=== PATIENT | male | born 1980 | race Hispanic/Latino ===

== ENCOUNTER 2018-07-22 09:07 | Emergency (ER) | payer OTHER ==
--- NOTE | 2018-07-22 09:42 | RAD ---
LEFT FOREARM TWO VIEWS: History: Fall, left arm injury. FINDINGS: Radius and ulna are intact. Mild ulnar negative variant. No acute fracture, dislocation, or radiopaqu e foreign bodies. IMPRESSION: No acute osseous abnormalities are demonstrated. POS: [facility]
--- NOTE | 2018-07-22 09:43 | RAD ---
PORTABLE AP CHEST RADIOGRAPH: Date: 07-22-18 History: Trauma. Comparison: None available. FINDINGS: Cardiac silhouette and bronchovascular markings are accentuated by shallow depth of inspiration and p ortable technique. The lungs appear clear. No obvious pneumothorax is seen and there is no pleural ef fusion identified. Visualized osseous structures demonstrate no evidence of a fracture. IMPRESSION: No acute cardiopulmonary process. POS: [facility]
--- NOTE | 2018-07-22 09:48 | CT ---
HEAD CT NONCONTRAST: INDICATIONS: Posttraumatic pain. FINDINGS: There is no intracranial hemorrhage, mass effect, or midline shift. The calvarium is intact. Scatte red mucus retention cyst formation noted. There is decrease pneumatization of the right mastoid air cells. IMPRESSION: No acute intracranial abnormality. Telephone call to Dr. Gorman placed at the time of the interpretation, 0930 hours, on 07/22/2018. CODE CR
--- NOTE | 2018-07-22 09:49 | RAD ---
LEFT HUMERUS FRONTAL AND LATERAL IMAGIN07/22/2018 HISTORY: Fall. Trauma. Pain. COMPARISON: None. FINDINGS: No displaced fracture or dislocation is seen. IMPRESSION: No acute findings. POS: [facility]
--- NOTE | 2018-07-22 09:49 | CT ---
NONCONTRAST CT CERVICAL SPINE: Date: 07-22-18 History: Level II Trauma. Patient fell 15-20 feet from a tree. Left shoulder and forearm pain. Technique: Contiguous axial CT images are obtained through the cervical spine to the level of the T1 vertebral body. Sagittal and coronal reformatted images are provided. FINDINGS: There is no evidence of a fracture or subluxation involving the cervical spine. The vertebral body he ights are within normal limits. The interspinous distances appear to be within normal limits. The prevertebral soft tissues are within normal limits. There are mucous retention cysts seen in each maxillary antrum with associated mucosal thickening on the left. IMPRESSION: 1. No fracture or subluxation involving the cervical spine. 2. Mucous retention cyst in each maxillary antrum. 3. Above findings discussed with Dr. Hayes in the Emergency Department on 07-22-18 at 0933 hours. POS: [facility]
--- NOTE | 2018-07-22 09:51 | CT ---
CT CHEST AND ABDOMEN AND PELVIS WITH IV CONTRAST: Date: 07/22/18 PROVIDED CLINICAL HISTORY: Left shoulder and left forearm pain status post fall, Level I trauma. FINDINGS: The heart, pericardium, and great vessels demonstrate no evidence for traumatic abnormality. The lung s are free of suspicious opacity. There is no pleural fluid or pneumothorax apparent. The solid abdominal organs demonstrate no evidence for traumatic abnormality. No bowel dilatation, in flammatory fat stranding, free fluid, or free air apparent. The osseous structures demonstrate no evidence for traumatic abnormality. Sagittal and coronal thoracic and lumbar spine reconstructions demonstrate normal spinal alignment an d maintenance of vertebral body heights. Thoracic disc degenerative changes are seen, which are advan octavio for age. IMPRESSION: No evidence for traumatic abnormality involving the chest, abdomen, or pelvis. POS: [facility]
[2018-07-22] MEDS ORDERED: ISOVUE-370 76%-LOCM 1 ML ONE (10:12)
[2018-07-22] MEDS ORDERED: Ketorolac Tromethamine 30 MG/ML VIAL ONE (10:18)
[2018-07-22 10:39] LABS: #Basophils 0.1 thou/uL (0.0-0.2); #Eosinphils 0.1 thou/uL (0.0-0.7); #Lymphocytes 1.8 thou/uL (1.20-3.40); #Monocytes 0.9 thou/uL (0.11-0.59); #Neutrophils 9.2 thou/uL (1.40-6.50); %Basophils 0.7 % (0.0-1.0); %Eosinophils 1.2 % (0.0-10.0); %Monocytes 7.2 % (0.0-10.0); %Neutrophils 75.9 % (42.0-75.0); Hemoglobin 15.9 g/dL (14.0-18.0); Mean Corpuscular HGB CONC 33.1 g/dL (32.0-36.0); Mean Corpuscular Volume 99.5 fL (78.0-98.0); Mean Platelet Volume 9.3 fL (7.4-10.4); Platelet Count 159 thou/uL (130-400); RBC Distribution Width 11.9 % (11.5-14.5); Red Blood Cell (RBC) Count 4.83 mill/uL (4.70-6.10); White Blood Cell (WBC) Count 12.1 thou/uL (4.8-10.8)
[2018-07-22 11:01] LABS: ALT (SGPT) 29 U/L (8-55); AST (SGOT) 22 U/L (5-34); Albumin 3.8 g/dL (3.5-5.0); Alkaline Phosphatase 70 U/L (40-150); Anion Gap 13 mmol/L (10-20); BUN (Urea Nitrogen) 14 mg/dL (8.9-20.6); Bilirubin, Total 0.5 mg/dL (0.2-1.2); Calc. Creatinine Clearance 0 mL/min (70-130); Calcium 9.5 mg/dL (7.8-10.44); Carbon Dioxide 20 mmol/L (22-29); Chloride 109 mmol/L (98-107); Estimated GFR-MDRD 83; Globulin 2.9 g/dL (2.4-3.5); Glucose 107 mg/dL (70-105); Lipase 29 U/L (8-78); Potassium 4.4 mmol/L (3.5-5.1); Protein, Total 6.7 g/dL (6.0-8.3); Sodium 138 mmol/L (136-145)
== END 2018-07-22 10:33 | disposition home or self-care (01) ==
LOC: ERS 09:07
DX: M25.512 Pain in left shoulder (principal); F17.210 Nicotine dependence, cigarettes, uncomplicated; W17.89XA Other fall from one level to another, initial encounter
CPT/HCPCS: 36415; 70450; 71045; 71260; 72125; 74177; 80053; 83690; 85025; 96374; J1885; Q9966

== ENCOUNTER 2023-05-11 00:18 | Emergency (ER) | payer SELFPAY ==
[2023-05-11 01:34] LABS: #Eosinphils 0.3 thou/uL (0.0-0.7); #Monocytes 0.7 thou/uL (0.11-0.59); #Neutrophils 5.5 thou/uL (1.40-6.50); %Basophils 0.2 % (0.0-1.0); %Eosinophils 4.2 % (0.0-10.0); %Lymphocytes 18.9 % (21.0-51.0); %Neutrophils 67.5 % (42.0-75.0); Hematocrit 39.3 % (42.0-52.0); Hemoglobin 13.3 g/dL (14.0-18.0); Mean Corpuscular HGB CONC 33.8 g/dL (32.0-36.0); Mean Corpuscular Hemoglobin 31.6 pg (27.0-31.0); Mean Corpuscular Volume 93.3 fl (78.0-98.0); Platelet Count 336 10x3/uL (130-400); RBC Distribution Width 12.5 % (11.5-14.5); Red Blood Cell (RBC) Count 4.21 mill/uL (4.70-6.10); White Blood Cell (WBC) Count 8.1 10x3/uL (4.8-10.8)
[2023-05-11 01:58] LABS: ALT (SGPT) 63 U/L (8-55); AST (SGOT) 28 U/L (5-34); Albumin 3.7 g/dL (3.5-5.0); Alkaline Phosphatase 68 U/L (40-110); Anion Gap 12 mmol/L (10-20); BUN (Urea Nitrogen) 15 mg/dL (8.9-20.6); Bilirubin, Total 0.4 mg/dL (0.2-1.2); Calc. Creatinine Clearance 0 mL/min (70-130); Calcium 9.1 mg/dL (7.8-10.44); Carbon Dioxide 21 mmol/L (22-29); Chloride 106 mmol/L (98-107); Estimated GFR 108; Globulin 3.8 g/dL (2.4-3.5); Glucose 108 mg/dL (70-105); Potassium 3.9 mmol/L (3.5-5.1); Protein, Total 7.5 g/dL (6.0-8.3); Sodium 135 mmol/L (136-145)
== END 2023-05-11 03:02 | disposition home or self-care (01) ==
LOC: ERS 00:18
DX: M25.462 Effusion, left knee (principal); M25.461 Effusion, right knee; M25.432 Effusion, left wrist; M25.431 Effusion, right wrist; F17.210 Nicotine dependence, cigarettes, uncomplicated
CPT/HCPCS: 36415; 80053; 83880; 85025; 99283

== ENCOUNTER 2023-07-16 19:06 | Inpatient (IN) | payer SELFPAY ==
[~2023-07-16 19:06] MED LIST: Iopamidol-370 76% 500 ML MDV (1 ML CHARGE) ONE
[2023-07-16 20:06] LABS: #Eosinphils 0.3 thou/uL (0.0-0.7); #Neutrophils 5.8 thou/uL (1.40-6.50); %Basophils 0.5 % (0.0-1.0); %Eosinophils 2.9 % (0.0-10.0); %Lymphocytes 17.8 % (21.0-51.0); %Monocytes 11.1 % (0.0-10.0); %Neutrophils 67.2 % (42.0-75.0); Hematocrit 33.5 % (42.0-52.0); Hemoglobin 11.2 g/dL (14.0-18.0); Mean Corpuscular HGB CONC 33.4 g/dL (32.0-36.0); Mean Corpuscular Hemoglobin 28.4 pg (27.0-31.0); Mean Corpuscular Volume 84.8 fl (78.0-98.0); Platelet Count 365 10x3/uL (130-400); RBC Distribution Width 13.4 % (11.5-14.5); Red Blood Cell (RBC) Count 3.95 mill/uL (4.70-6.10); White Blood Cell (WBC) Count 8.6 10x3/uL (4.8-10.8)
[2023-07-16 20:25] LABS: ALT (SGPT) 16 U/L (8-55); AST (SGOT) 16 U/L (5-34); Albumin 3.3 g/dL (3.5-5.0); Alkaline Phosphatase 65 U/L (40-110); Anion Gap 12 mmol/L (10-20); BUN (Urea Nitrogen) 12 mg/dL (8.9-20.6); Bilirubin, Total 0.3 mg/dL (0.2-1.2); Calc. Creatinine Clearance 0 mL/min (70-130); Calcium 9.1 mg/dL (7.8-10.44); Carbon Dioxide 22 mmol/L (22-29); Chloride 105 mmol/L (98-107); Estimated GFR 115; Globulin 4.4 g/dL (2.4-3.5); Glucose 99 mg/dL (70-105); Protein, Total 7.7 g/dL (6.0-8.3); Sodium 135 mmol/L (136-145)
[2023-07-16 20:28] LABS: Troponin I Less than 0.010 ng/mL (< 0.028)
[2023-07-16 20:35] LABS: CK (CPK) 20 U/L (30-200); Magnesium 1.7 mg/dL (1.6-2.6)
[2023-07-16 22:29] LABS: Bacteria/HPF None Seen HPF (None Seen); Bilirubin Negative (Negative); Blood, Urine Negative (Negative); CAUTI Indications for Culture Pelvic or flank pain; Clarity Clear (Clear); Glucose, Urine (Dipstick) Normal (Negative); Ketone, Urine Negative (Negative); Leukocyte Negative Leu/uL (Negative); Nitrite Negative (Negative); Protein, Urine (Dipstick) Negative (Neg-Trace); RBC/HPF 0-3 HPF (0-3); Specific Gravity, Urine 1.013 (1.002-1.036); Squamous Epithelial 0-3 HPF (0-3); Urobilinogen Normal mg/dL (Less than 2); WBC/HPF 0-3 HPF (0-3)
[2023-07-16 22:37] LABS: Urine Culture Reflex No No
[2023-07-16 22:38] LABS: Amphetamine Not Detected (NotDetected); Barbiturates Screen Not Detected (NotDetected); Benzodiazepine Screen Not Detected (NotDetected); Cocaine Metabolite Screen Not Detected (NotDetected); Methadone Not Detected (NotDetected); Methamphetamine Not Detected (NotDetected); Opiate Screen Not Detected (NotDetected); Oxycodone Screen Not Detected (NotDetected); Phencyclidine (PCP) Not Detected (NotDetected); THC/Cannabinoid Screen Not Detected (NotDetected); Tricyclic Screen Not Detected (NotDetected)
[2023-07-17] VITALS: BMI 26.1
[2023-07-17] MEDS ORDERED: Ondansetron ODT 4 MG TAB PO PRN
[2023-07-17] MEDS ORDERED: Ondansetron PF 4 MG/2 ML Vial IVP PRN
[2023-07-17] MEDS ORDERED: Acetaminophen 325 MG TAB ONE (00:39)
[2023-07-17] MEDS: Acetaminophen 325 MG TAB PO PRN (00:47)
[2023-07-17 01:25] LABS: HBCM Index 0.06 S/CO (0-0.79); HBSAg Index 0.23 S/CO (0-0.99); HIV (1/2) Antibody/Antigen Non-Reactive (NonReactive); HIV 1/2 INDEX 0.22 S/CO (<1.00); Hep A IgM AB Non-Reactive S/CO (NonReactive); Hep A IgM S/CO 0.18 S/CO (0-0.79); Hep B Surf Ag Non-Reactive S/CO (NonReactive); Hep C IgG Ab Non-Reactive S/CO (NonReactive); Hep C Index 0.17 S/CO (0-0.79); Hepatitis B Core IgM Abs Non-Reactive S/CO (NonReactive)
[2023-07-17 05:45] LABS: #Eosinphils 0.3 thou/uL (0.0-0.7); #Monocytes 0.9 thou/uL (0.11-0.59); #Neutrophils 4.9 thou/uL (1.40-6.50); %Basophils 0.3 % (0.0-1.0); %Eosinophils 3.5 % (0.0-10.0); %Monocytes 11.4 % (0.0-10.0); %Neutrophils 63.4 % (42.0-75.0); Hematocrit 32.2 % (42.0-52.0); Hemoglobin 10.7 g/dL (14.0-18.0); Mean Corpuscular HGB CONC 33.2 g/dL (32.0-36.0); Mean Corpuscular Hemoglobin 28.7 pg (27.0-31.0); Mean Corpuscular Volume 86.3 fl (78.0-98.0); Platelet Count 337 10x3/uL (130-400); RBC Distribution Width 13.5 % (11.5-14.5); Red Blood Cell (RBC) Count 3.73 mill/uL (4.70-6.10); White Blood Cell (WBC) Count 7.7 10x3/uL (4.8-10.8)
[2023-07-17 06:07] LABS: Anion Gap 10 mmol/L (10-20); BUN (Urea Nitrogen) 11 mg/dL (8.9-20.6); Calc. Creatinine Clearance 129 mL/min (70-130); Calcium 9.1 mg/dL (7.8-10.44); Carbon Dioxide 26 mmol/L (22-29); Chloride 106 mmol/L (98-107); Estimated GFR 115; Glucose 123 mg/dL (70-105); Potassium 3.9 mmol/L (3.5-5.1); Sodium 138 mmol/L (136-145)
[2023-07-17] MEDS ORDERED: Enoxaparin 40 MG (0.4 mL) SYRINGE ONE (07:54)
[2023-07-17] MEDS: Enoxaparin 40 MG (0.4 mL) SYRINGE SC SCH (08:19)
[2023-07-17 11:21] LABS: Syphilis Antibody Nonreactive (Nonreactive); Syphilis Antibody Index 0.08 S/CO (<1.00 Non-Reactive)
[2023-07-17 14:10] LABS: Uric Acid 6.7 mg/dL (3.5-7.2)
[2023-07-17] MEDS: Ketorolac Tromethamine 30 MG (1 mL) VIAL IVP PRN (15:48)
[2023-07-17 16:41] LABS: Reference Lab Name LABCORP
[2023-07-18 05:05] LABS: #Eosinphils 0.3 thou/uL (0.0-0.7); #Monocytes 0.9 thou/uL (0.11-0.59); %Basophils 0.5 % (0.0-1.0); %Eosinophils 3.5 % (0.0-10.0); %Lymphocytes 21.6 % (21.0-51.0); %Monocytes 10.8 % (0.0-10.0); %Neutrophils 63.2 % (42.0-75.0); Hematocrit 31.7 % (42.0-52.0); Hemoglobin 10.3 g/dL (14.0-18.0); Mean Corpuscular HGB CONC 32.5 g/dL (32.0-36.0); Mean Corpuscular Hemoglobin 28.1 pg (27.0-31.0); Mean Corpuscular Volume 86.6 fl (78.0-98.0); Platelet Count 321 10x3/uL (130-400); RBC Distribution Width 13.5 % (11.5-14.5); Red Blood Cell (RBC) Count 3.66 mill/uL (4.70-6.10); White Blood Cell (WBC) Count 7.9 10x3/uL (4.8-10.8)
[2023-07-18 05:30] LABS: Anion Gap 10 mmol/L (10-20); BUN (Urea Nitrogen) 13 mg/dL (8.9-20.6); Calc. Creatinine Clearance 129 mL/min (70-130); Calcium 9.1 mg/dL (7.8-10.44); Carbon Dioxide 26 mmol/L (22-29); Chloride 106 mmol/L (98-107); Estimated GFR 115; Glucose 98 mg/dL (70-105); Potassium 3.8 mmol/L (3.5-5.1); Sodium 138 mmol/L (136-145)
[2023-07-18] MEDS: Sodium Chloride 0.9% 1,000 ML IV SCH (07:37)
[2023-07-18] MEDS ORDERED: Sodium Chloride 0.9% 100 ML ONE (08:05)
[2023-07-18] MEDS ORDERED: CEFAZOLIN 2 GM VIAL ONE (08:05)
[2023-07-18] MEDS ORDERED: Bupivacaine PF 0.5% 30 ML VIAL ONE (08:48)
[2023-07-18] MEDS ORDERED: EPINEPHrine 1 MG/ML VIAL ONE (08:48)
[2023-07-18] MEDS ORDERED: Lidocaine 2% PF 5 ML VIAL ONE (08:50)
[2023-07-18] MEDS ORDERED: fentaNYL PF 100 MCG/2 ML SYRINGE ONE (09:00)
[2023-07-18] MEDS ORDERED: PROPOFOL 20 ML ONE (09:01)
[2023-07-18] MEDS ORDERED: Ondansetron PF 4 MG/2 ML Vial ONE (09:01)
[2023-07-18] MEDS ORDERED: Lidocaine 1% PF 5 ML VIAL ONE (09:01)
[2023-07-18] MEDS ORDERED: PHENYLEPHRINE-NS 100 MCG/ML 10 ML SYRINGE ONE (09:34)
[2023-07-18] MEDS ORDERED: Ondansetron HCl/PF 4 MG/2 ML Vial IVP PRN (09:57)
[2023-07-18] MEDS ORDERED: Promethazine HCl 25 MG/ML VIAL IM PRN (09:57)
[2023-07-18] MEDS ORDERED: fentaNYL 50 mcg/mL 1 mL Vial ONE (10:26)
[2023-07-18 12:20] LABS: ANA Symphony (Qualitative) Negative (Negative); ANA Symphony (Quantitative) 0.4 Ratio (< 0.7 Negative); dsDNA IgG Antibody 2.6 IU/mL (<10 Negative)
[2023-07-18] MEDS ORDERED: CEFAZOLIN 2 GM in Sodium Chloride 0.9% 100 ML IVPB SCH (15:15)
[2023-07-18] MEDS ORDERED: Doxycycline 100 MG CAP PO SCH (21:00)
[2023-07-18] MEDS: Folic Acid 1 MG TAB PO SCH (21:10)
[2023-07-18] MEDS: Cyanocobalamin (Vitamin B-12) 1,000 MCG TAB PO SCH (21:10)
[2023-07-18] MEDS: Multivit, Therapeutic 1 TAB PO SCH (21:10)
[2023-07-18] MEDS: Cholecalciferol 1,000 UNITS (25 MCG) TAB PO SCH (21:10)
[2023-07-18] MEDS: Enoxaparin 40 MG (0.4 mL) SYRINGE SC SCH (21:10)
[2023-07-18] MEDS: Thiamine 100 MG TAB PO SCH (21:10)
[2023-07-19 07:07] LABS: #Eosinphils 0.2 thou/uL (0.0-0.7); #Monocytes 0.8 thou/uL (0.11-0.59); #Neutrophils 6.1 thou/uL (1.40-6.50); %Basophils 0.2 % (0.0-1.0); %Eosinophils 2.2 % (0.0-10.0); %Lymphocytes 17.6 % (21.0-51.0); %Monocytes 9.1 % (0.0-10.0); %Neutrophils 70.4 % (42.0-75.0); Hemoglobin 10.1 g/dL (14.0-18.0); Mean Corpuscular HGB CONC 32.6 g/dL (32.0-36.0); Mean Corpuscular Volume 85.9 fl (78.0-98.0); Mean Platelet Volume 10.5 fL (7.4-10.4); Platelet Count 324 10x3/uL (130-400); RBC Distribution Width 13.5 % (11.5-14.5); Red Blood Cell (RBC) Count 3.61 mill/uL (4.70-6.10); White Blood Cell (WBC) Count 8.7 10x3/uL (4.8-10.8)
[2023-07-19 07:30] LABS: Anion Gap 13 mmol/L (10-20); BUN (Urea Nitrogen) 17 mg/dL (8.9-20.6); Calc. Creatinine Clearance 146 mL/min (70-130); Calcium 8.9 mg/dL (7.8-10.44); Carbon Dioxide 15 mmol/L (22-29); Chloride 110 mmol/L (98-107); Estimated GFR 119; Glucose 96 mg/dL (70-105); Potassium 4.5 mmol/L (3.5-5.1); Sodium 133 mmol/L (136-145)
[2023-07-19] MEDS ORDERED: Iron Sucrose Complex 200 MG in Sodium Chloride 0.9% 100 ML IVPB SCH (13:30)
[2023-07-19] MEDS ORDERED: Iron, Sodium Ferric Gluconate 250 MG in Sodium Chloride 0.9% 250 ML 250 ML IVPB SCH (14:00)
[2023-07-19 14:24] LABS: Reference Lab Name LABCORP
[2023-07-19] MEDS: Calcium Carbonate 600 MG + Vit D TAB PO SCH (16:48)
[2023-07-19] MEDS: Polyethylene Glycol 3350 17 GM Packet PO SCH (16:49)
[2023-07-19] MEDS: Iron, Sodium Ferric Gluconate 250 MG in Sodium Chloride 0.9% 250 ML 250 ML IVPB SCH (18:34)
[2023-07-19] MEDS: Senokot S 8.6-50 MG TAB PO SCH (20:43)
[2023-07-19] MEDS: Ketorolac Tromethamine 30 MG (1 mL) VIAL IVP PRN (23:44)
[2023-07-20 05:00] LABS: #Eosinphils 0.2 thou/uL (0.0-0.7); #Monocytes 0.8 thou/uL (0.11-0.59); #Neutrophils 5.5 thou/uL (1.40-6.50); %Basophils 0.5 % (0.0-1.0); %Eosinophils 2.3 % (0.0-10.0); %Lymphocytes 17.6 % (21.0-51.0); %Neutrophils 69.2 % (42.0-75.0); Hematocrit 29.9 % (42.0-52.0); Hemoglobin 9.9 g/dL (14.0-18.0); Mean Corpuscular HGB CONC 33.1 g/dL (32.0-36.0); Mean Corpuscular Hemoglobin 28.4 pg (27.0-31.0); Mean Corpuscular Volume 85.7 fl (78.0-98.0); Mean Platelet Volume 10.1 fL (7.4-10.4); Platelet Count 294 10x3/uL (130-400); RBC Distribution Width 13.6 % (11.5-14.5); Red Blood Cell (RBC) Count 3.49 mill/uL (4.70-6.10); White Blood Cell (WBC) Count 7.9 10x3/uL (4.8-10.8)
[2023-07-20 05:15] LABS: Phosphorus 4.5 mg/dL (2.3-4.7)
[2023-07-20 05:20] LABS: Anion Gap 10 mmol/L (10-20); BUN (Urea Nitrogen) 16 mg/dL (8.9-20.6); Calc. Creatinine Clearance 148 mL/min (70-130); Calcium 8.6 mg/dL (7.8-10.44); Carbon Dioxide 24 mmol/L (22-29); Chloride 107 mmol/L (98-107); Estimated GFR 120; Glucose 105 mg/dL (70-105); Potassium 3.8 mmol/L (3.5-5.1); Sodium 137 mmol/L (136-145)
[2023-07-20] MEDS ORDERED: Sodium Bicarbonate 2.5 MEQ/5 ML SDV ONE (08:34)
[2023-07-20] MEDS: Ascorbic Acid 500 mg Chewable Tablet PO SCH (10:07)
[2023-07-20] MEDS: Polyethylene Glycol 3350 17 GM Packet PO PRN (10:07)
[2023-07-20] MEDS: pyridOXINE 50 MG (B6) TAB PO SCH (10:07)
[2023-07-20 10:52] LABS: CSF Source CSF; Clarity Clear (Clear); Tube # 1
[2023-07-20 11:20] LABS: CSF, Glucose 56 mg/dl (40-70); CSF, Protein 27 mg/dL (15-40)
[2023-07-20] MEDS: Polyethylene Glycol 3350 17 GM Packet PO SCH (21:31)
[2023-07-20] MEDS: Senokot S 8.6-50 MG TAB PO SCH (21:31)
[2023-07-21 05:59] LABS: #Eosinphils 0.3 thou/uL (0.0-0.7); #Neutrophils 5.5 thou/uL (1.40-6.50); %Basophils 0.4 % (0.0-1.0); %Lymphocytes 17.8 % (21.0-51.0); %Monocytes 12.3 % (0.0-10.0); %Neutrophils 66.3 % (42.0-75.0); Hematocrit 30.4 % (42.0-52.0); Mean Corpuscular HGB CONC 32.9 g/dL (32.0-36.0); Mean Corpuscular Hemoglobin 28.2 pg (27.0-31.0); Mean Corpuscular Volume 85.6 fl (78.0-98.0); Mean Platelet Volume 9.7 fL (7.4-10.4); Platelet Count 306 10x3/uL (130-400); RBC Distribution Width 13.7 % (11.5-14.5); Red Blood Cell (RBC) Count 3.55 mill/uL (4.70-6.10); White Blood Cell (WBC) Count 8.3 10x3/uL (4.8-10.8)
[2023-07-21 06:29] LABS: Anion Gap 11 mmol/L (10-20); BUN (Urea Nitrogen) 12 mg/dL (8.9-20.6); Calc. Creatinine Clearance 138 mL/min (70-130); Calcium 9.2 mg/dL (7.8-10.44); Carbon Dioxide 24 mmol/L (22-29); Chloride 105 mmol/L (98-107); Estimated GFR 117; Glucose 104 mg/dL (70-105); Potassium 4.1 mmol/L (3.5-5.1); Sodium 136 mmol/L (136-145)
[2023-07-21] MEDS: Senokot S 8.6-50 MG TAB PO SCH (07:51)
[2023-07-22] MEDS: Ketorolac Tromethamine 30 MG (1 mL) VIAL IVP PRN (04:46)
[2023-07-22 20:21] LABS: MONO NEGATIVE CONTROL ZONE White (Negative) (White); MONO POSITIVE CONTROL Pink Line (Positive) (PINK/RED); Mononucleosis NEGATIVE (NEGATIVE)
[2023-07-23 07:11] LABS: #Eosinphils 0.3 thou/uL (0.0-0.7); #Neutrophils 5.5 thou/uL (1.40-6.50); %Basophils 0.4 % (0.0-1.0); %Eosinophils 3.6 % (0.0-10.0); %Lymphocytes 19.3 % (21.0-51.0); %Monocytes 11.9 % (0.0-10.0); %Neutrophils 64.4 % (42.0-75.0); Hematocrit 30.8 % (42.0-52.0); Mean Corpuscular HGB CONC 32.5 g/dL (32.0-36.0); Mean Corpuscular Volume 86.3 fl (78.0-98.0); Mean Platelet Volume 10.1 fL (7.4-10.4); Platelet Count 300 10x3/uL (130-400); RBC Distribution Width 14.1 % (11.5-14.5); Red Blood Cell (RBC) Count 3.57 mill/uL (4.70-6.10); White Blood Cell (WBC) Count 8.6 10x3/uL (4.8-10.8)
[2023-07-23 07:33] LABS: Anion Gap 10 mmol/L (10-20); BUN (Urea Nitrogen) 16 mg/dL (8.9-20.6); CRP (Inflammatory) 6.59 mg/dL (= or < 0.5); Calc. Creatinine Clearance 140 mL/min (70-130); Calcium 9.1 mg/dL (7.8-10.44); Carbon Dioxide 26 mmol/L (22-29); Chloride 106 mmol/L (98-107); Estimated GFR 118; Glucose 106 mg/dL (70-105); Potassium 4.2 mmol/L (3.5-5.1); Sodium 138 mmol/L (136-145)
[2023-07-23] MEDS ORDERED: Bupivacaine 0.25% HCL 30 ML VIAL ONE (08:39)
[2023-07-23] MEDS ORDERED: EPINEPHrine 1 MG/ML VIAL ONE (08:39)
[2023-07-23] MEDS ORDERED: PROPOFOL 20 ML ONE (09:01)
[2023-07-23] MEDS ORDERED: Lidocaine 2% PF 5 ML VIAL ONE (09:01)
[2023-07-23] MEDS ORDERED: Lidocaine 1% PF 5 ML VIAL ONE (09:10)
[2023-07-23] MEDS ORDERED: Ketorolac Tromethamine 30 MG (1 mL) VIAL ONE (09:17)
[2023-07-23] MEDS ORDERED: Ondansetron PF 4 MG/2 ML Vial ONE (09:17)
[2023-07-23] MEDS ORDERED: Dexamethasone 4 mg/ml Vial ONE (09:17)
[2023-07-23] MEDS ORDERED: fentaNYL PF 100 MCG/2 ML SYRINGE ONE (09:19)
[2023-07-23] MEDS ORDERED: ePHEDrine Sulfate 50 MG/10 ML VIAL ONE (09:20)
[2023-07-23] MEDS ORDERED: PACU-Morphine 4MG/ML VIAL SLOW IVP PRN (09:48)
[2023-07-23] MEDS ORDERED: Promethazine HCl 25 MG/ML VIAL IM PRN (09:48)
[2023-07-23] MEDS ORDERED: HYDROmorphone 2 MG/ML VIAL SLOW IVP PRN (09:48)
[2023-07-23] MEDS ORDERED: Ondansetron HCl/PF 4 MG/2 ML Vial IVP PRN (09:48)
[2023-07-23] MEDS: HYDROcodone/Acetaminophen 5/325 mg Tablet PO PRN (11:55)
[2023-07-24] MEDS: Enoxaparin 40 MG (0.4 mL) SYRINGE SC SCH (09:16)
[2023-07-24] MEDS: HYDROcodone/Acetaminophen 5/325 mg Tablet PO PRN (13:17)
[2023-07-24] MEDS: Polyethylene Glycol 3350 17 GM Packet PO PRN (22:43)
[2023-07-25] MEDS: Mineral Oil ENEMA PR SCH (02:50)
[2023-07-25 08:10] LABS: #Eosinphils 0.1 thou/uL (0.0-0.7); #Monocytes 0.7 thou/uL (0.11-0.59); #Neutrophils 7.7 thou/uL (1.40-6.50); %Basophils 0.3 % (0.0-1.0); %Eosinophils 0.9 % (0.0-10.0); %Lymphocytes 16.6 % (21.0-51.0); %Monocytes 7.1 % (0.0-10.0); %Neutrophils 74.8 % (42.0-75.0); Hematocrit 32.5 % (42.0-52.0); Hemoglobin 10.5 g/dL (14.0-18.0); Mean Corpuscular HGB CONC 32.3 g/dL (32.0-36.0); Mean Corpuscular Hemoglobin 28.2 pg (27.0-31.0); Mean Corpuscular Volume 87.4 fl (78.0-98.0); Mean Platelet Volume 10.2 fL (7.4-10.4); Platelet Count 327 10x3/uL (130-400); RBC Distribution Width 14.4 % (11.5-14.5); Red Blood Cell (RBC) Count 3.72 mill/uL (4.70-6.10); White Blood Cell (WBC) Count 10.3 10x3/uL (4.8-10.8)
[2023-07-25 08:35] LABS: Anion Gap 9 mmol/L (10-20); BUN (Urea Nitrogen) 14 mg/dL (8.9-20.6); Calc. Creatinine Clearance 134 mL/min (70-130); Calcium 9.4 mg/dL (7.8-10.44); Carbon Dioxide 27 mmol/L (22-29); Chloride 104 mmol/L (98-107); Estimated GFR 117; Glucose 108 mg/dL (70-105); Potassium 4.3 mmol/L (3.5-5.1); Sodium 136 mmol/L (136-145)
[2023-07-25 13:13] LABS: West Nile Virus IgG Ab Positive (Negative); West Nile Virus IgM Ab Negative (Negative)
[2023-07-25 15:45] LABS: CCP IgG Antibody Greater than 340.0 EliAU/mL (<7 Negative)
[2023-07-25] MEDS: Polyethylene Glycol 3350 17 GM Packet PO PRN (17:18)
[2023-07-25 18:38] LABS: Aspergillus AB-CSF <1:1 (.); Blastomyces AB-CSF <1:1 (.); Histoplasma Mycelial AB-CSF <1:1 (.); Histoplasma Yeast AB-CSF <1:1 (.)
[2023-07-25] MEDS: predniSONE 20 MG TAB PO SCH (19:00)
[2023-07-25] MEDS: Senokot S 8.6-50 MG TAB PO SCH (20:55)
[2023-07-26] MEDS: Acetaminophen/Codeine 30-300mg Tablet PO PRN (04:17)
[2023-07-26] MEDS: predniSONE 20 MG TAB PO SCH (08:09)
[2023-07-26 10:14] LABS: Arsenic - Blood 3 ug/L (0-9); Lead - Blood 1.2 ug/dL (0.0-3.4); Mercury - Blood <1.0 ug/L (0.0-14.9)
[2023-07-26] MEDS: Methotrexate Sodium 2.5 MG TAB PO SCH (10:28)
[2023-07-26 20:38] LABS: Epstein Barr Virus PCR Positive (Negative)
[2023-07-27] MEDS: predniSONE 5 MG TAB PO SCH (07:35)
[2023-07-27 08:01] LABS: #Eosinphils 0.6 thou/uL (0.0-0.7); #Monocytes 0.8 thou/uL (0.11-0.59); #Neutrophils 7.2 thou/uL (1.40-6.50); %Basophils 0.3 % (0.0-1.0); %Eosinophils 5.2 % (0.0-10.0); %Lymphocytes 25.5 % (21.0-51.0); %Monocytes 7.1 % (0.0-10.0); %Neutrophils 61.5 % (42.0-75.0); Hematocrit 32.3 % (42.0-52.0); Hemoglobin 10.3 g/dL (14.0-18.0); Mean Corpuscular HGB CONC 31.9 g/dL (32.0-36.0); Mean Corpuscular Hemoglobin 27.9 pg (27.0-31.0); Mean Corpuscular Volume 87.5 fl (78.0-98.0); Mean Platelet Volume 10.2 fL (7.4-10.4); Platelet Count 311 10x3/uL (130-400); RBC Distribution Width 14.7 % (11.5-14.5); Red Blood Cell (RBC) Count 3.69 mill/uL (4.70-6.10); White Blood Cell (WBC) Count 11.6 10x3/uL (4.8-10.8)
[2023-07-27 08:23] LABS: Anion Gap 10 mmol/L (10-20); BUN (Urea Nitrogen) 21 mg/dL (8.9-20.6); Calc. Creatinine Clearance 134 mL/min (70-130); Calcium 8.9 mg/dL (7.8-10.44); Carbon Dioxide 25 mmol/L (22-29); Chloride 107 mmol/L (98-107); Estimated GFR 117; Glucose 105 mg/dL (70-105); Sodium 138 mmol/L (136-145)
[2023-07-27] MEDS: Ibuprofen 200 MG TAB PO PRN (20:55)
[2023-07-28] MEDS: Acetaminophen/Codeine 30-300mg Tablet PO PRN (01:06)
[2023-07-28 16:10] VITALS: BP 108/69; TEMP 98.2
[2023-07-28 16:13] LABS: West Nile Virus IgG Ab - CSF Positive (Negative); West Nile Virus IgM Ab - CSF Negative (Negative)
[2023-07-30 04:37] LABS: QuantiFERON-TB Gold Plus Negative (Negative)
== END 2023-07-28 18:20 | disposition home or self-care (01) | DRG 501 ==
LOC: ERS 19:06 → OBSVTOIN 23:29 → ERHOLD 23:29 → 2SE 07-17 15:13 → MSONC 07-18 18:37
PROVIDERS: ADMIT Student in an Organized Health Care Education/Training Program; ATTEND Family Medicine
PROC: 07B50ZX Excision of Right Axillary Lymphatic, Open Approach, Diagnostic (ICD-10-PCS; principal; 2023-07-18)
PROC: 0KBQ0ZX Excision of Right Upper Leg Muscle, Open Approach, Diagnostic (ICD-10-PCS; 2023-07-23)
DX: M06.9 Rheumatoid arthritis, unspecified (principal); E87.1 Hypo-osmolality and hyponatremia; R59.1 Generalized enlarged lymph nodes; D63.8 Anemia in other chronic diseases classified elsewhere; G72.9 Myopathy, unspecified; R63.0 Anorexia; Z87.891 Personal history of nicotine dependence; Z68.26 Body mass index [BMI] 26.0-26.9, adult
CPT/HCPCS: 36415; 62270; 70551; 71045; 71260; 72141; 72146; 72148; 74177; 80048; 80053; 80074; 80306; 81001; 82085; 82164; 82175; 82533; 82550; 82607; 82728; 82945; 83519; 83520; 83540; 83550; 83615; 83655; 83735; 83825; 83880; 84100; 84145; 84157; 84425; 84443; 84484; 84550; 85025; 86038; 86060; 86140; 86200; 86225; 86308; 86480; 86612; 86618; 86635; 86698; 86780; 86788; 86789; 87040; 87081; 87389; 87430; 87529; 87798; 88184; 88300; 88307; 88341; 88342; 89051; 93005; J0171; J0665; J1100; J1650; J1885; J2001; J2405; J2704; J2916; J3010; J3490; J7050; J7512; J8610; Q9967